=== PATIENT | female | born 1990 | race Caucasian/White ===

== ENCOUNTER 2017-04-15 11:54 | Emergency (ER) | payer OTHER ==
[~2017-04-15] VITALS: Ht 160 cm; Wt 49.9 kg
[2017-04-15] MEDS ORDERED: GABAPENTIN 100100 MG PO (11:58)
[2017-04-15 12:38] LABS: ABSOLUTE NEUTROPHILS 6.3 thou/uL (1.4-8.2); BASOPHILS 0.3 % (0.0-2.0); EOSINOPHILS 0.2 % (0.0-3.0); HEMATOCRIT 40.4 % (37.0-47.0); HEMOGLOBIN 13.8 gm/dL (12.0-15.0); LYMPHOCYTES 20.1 % (24.0-44.0); MCH 30.5 pg (26.0-34.0); MCV 89.6 fL (80.0-100.0); MONOCYTES 4.5 % (1.0-8.0); PLATELET COUNT 234 thou/uL (150-400); POLYS 74.9 % (36.0-66.0); RBC 4.51 mil/uL (4.20-5.00); WBC 8.5 thou/uL (4.0-11.0)
[2017-04-15 12:39] LABS: MANUAL DIFF NO
[2017-04-15 12:45] LABS: CALCIUM 9.2 mg/dL (8.5-10.1); CREATININE 0.8 mg/dL (0.6-1.0); POTASSIUM 4.3 mmol/L (3.5-5.1)
[2017-04-15 13:44] VITALS: BP 123/79
== END 2017-04-15 13:47 | disposition home or self-care (01) ==
LOC: ER 11:54
PROVIDERS: Emergency Medicine
DX: G40.89 Other seizures (principal); F10.99 Alcohol use, unspecified with unspecified alcohol-induced disorder; Z88.1 Allergy status to other antibiotic agents; Z88.0 Allergy status to penicillin